=== PATIENT | female | born 1960 | race Caucasian/White ===

== ENCOUNTER → 2021-03-14 14:30 | Outpatient (CLI) | payer OTHER, SELFPAY ==
[2021-03-14 16:47] LABS: Probe Check PASS; Specimen Processing Control PASS
== END ==
PROVIDERS: PCP Family Medicine; Referring Provider Urology; Visit Provider Urology
DX: Z03.818 Encounter for observation for suspected exposure to other biological agents ruled out (principal)
CPT/HCPCS: 87635; C9803; U0005; U0003

== ENCOUNTER 2021-06-17 14:23 | Emergency (ER) | payer OTHER, SELFPAY ==
[2021-06-17 14:23] VITALS: BP 90/59; PULSE 88; RESP 18; TEMP 36.6; O2SAT 99; BMI 19.1
--- NOTE | 2021-06-17 15:46 | EKG12_ITS ---
Test Reason : SOB Blood Pressure : / mmHG Vent. Rate : 078 BPM Atrial Rate : 078 BPM P-R Int : 136 ms QRS Dur : 088 ms QT Int : 382 ms P-R-T Axes : 051 021 046 degrees QTc Int : 435 ms Normal sinus rhythm Normal ECG Confirmed by CONOR BENITEZ, MARTÍNEZ ([id number]), social media editor SHARMAINE THURMAN ([id number]) on 06/20/2021 10:00:40 AM Referred By: ITALO Confirmed By:MARTÍNEZ PERDOMO MD
--- NOTE | 2021-06-17 15:48 | EDS_ITS ---
HPI History of Present Illness Chief Complaint: Fever Informant: patient Narrative Narrative: Patient was sent in by her primary physician today just to get checked. Patient started with some coughing and fevers back in mid May. On about the or 12 May she was seen at a different emergency department. Blood work x-rays were done that showed pneumonia. She was on Levaquin at that time. The fever stopped between about 01 June and 07 June. The fevers then came back 07 June. She said they will be up to upper 102's and as low as 101. She is still coughing but no sputum production. She is not actually short of breath. No pain. She was also diagnosed with a UTI earlier on but on repeat checks that was gone and her symptoms are gone. She has followed up with her physician. They switched her after 12 days of Levaquin. She is now on Augmentin for 4 days. No major change. She had a negative Covid test at home. She had an early negative Covid test that was a PCR. She had another Covid test on Thursday but does not know the results. She has had x-rays as well as a CT with contrast. This showed some groundglass opacities mostly on the left but slightly on the right. She has no history of autoimmune disease. She does have history of multiple sclerosis and is on monthly injections for this. No sores or wounds. No swollen or tender areas. She did have a [place] [facility] [place] but she has no chest pain hemoptysis tachycardia tachypnea hypoxia leg pain or swelling. Patient does have follow-up with pulmonology, Dr. Nguyen if she is not admitted today. [facility] Medical History (Updated 06/17/21 @ 17:[address] Sadiq Del Rio MD) Multiple sclerosis Home Medications prednisone 60 mg PO DAILY #15 tab 06/17/21 [Rx Last Taken Unknown] Allergy/AdvReac Type Severity Reaction Status Date / Time pantoprazole [From Protonix] Allergy Angioedema Verified 06/17/21 14:26 Social History Smoking Status: Never smoker ROS ROS ED Constitutional Constitutional ED: Reports fever(s) and subjective; Denies weight loss Eyes Eyes: Denies blurry vision ENT ENT ED: Denies rhinorrhea or sore throat Cardiovascular Cardiovascular: Denies chest pain, palpitations or racing heartbeat Respiratory/Chest Respiratory/Chest: Reports cough; Denies dyspnea or sputum Gastrointestinal Gastrointestinal: Reports other Details: Appetite is down but she is able to eat and drink. No nausea vomiting or diarrhea. ; Denies abdominal pain, nausea or vomiting Genitourinary Genitourinary ED: Denies dysuria, hematuria or urinary frequency Musculoskeletal Musculoskeletal: Denies myalgias Integumentary Denies rash Neurologic Neurologic: Denies headache(s) or weakness Psychiatric Psychiatric: Denies anxiety or depression Endocrine Endocrinology: Denies polydipsia or polyuria Allergic/Immunologic Allergic/Immunologic ED: Denies urticaria EXAM Physical Exam Const Vital Signs: 06/17/21 14:23 06/17/21 16:00 06/17/21 17:25 Temperature 98 F Temperature Source Temporal Pulse Rate 88 80 84 Respiratory Rate 18 20 H 23 H Blood Pressure 90/59 L 83/66 L Blood Pressure Mean 69 71 Pulse Ox 99 94 99 Oxygen Delivery Method Room Air Room Air Room Air Positive well nourished and well developed; Negative for unkempt Constitutional Narrative: Patient looks comfortable. She is appropriately dressed and groomed sitting in bed quietly. Saturations are 99%. She does not look pale. Not diaphoretic. Not toxic. General Appearance ED: well developed and NAD; Negative for unkempt, cyanotic or diaphoretic HEENT Reports moist mucous membranes Eyes General Eye ED: Negative for pale conjunctiva Neck no JVD Chest Wall inspection of chest normal Resp normal respiratory effort and clear to auscultation bilaterally Resp Narrative: Breathing is easy and unlabored. When she takes deep breaths they do start a slight dry cough but no sputum production. However, I do not hear any rales rhonchi or actual wheezing. There is no discomfort with a deep breath. Effort and Inspection: Negative for pain with movement Auscultation: Negative for rales, rhonchi or wheezes Cardio regular rate, regular rhythm and no murmurs GI normal to inspection, nondistended, normoactive bowel sounds and non-tender Palpation: soft Back/Spine no CVA tenderness Extremity normal to inspection Extremity Narrative: Extremities are thin, nontender, no edema, no cords, no asymmetry. General Extremety ED: Negative for edema or tenderness General Extremity: Negative for edema Neuro oriented x3 Sensorium / Orientation: alert Psych mental status grossly normal Appearance: Negative for unkempt Skin no rashes or lesions noted and no wounds MDM MDM MDM Narrative Medical decision making narrative: Patient's blood work including CBC is overall unremarkable. Potassium was minimally low at 3.4 and this should self correct. Urine was clean. He however did show her to reticulonodular densities. This was more on the right. Patient saturations are normal. She can walk around without any difficulties. Her symptoms have not worsened over the last month but they have not improved. She has follow-up appointment being scheduled with pulmonology, Dr. Nguyen. She talk to her their office today. They states if she was admitted they will follow her up in the office. If she is not admitted to call their office in the morning for an appointment. I think an appointment with Dr. Nguyen is very important. This patient is presenting with a month of symptoms that are just not improving. Her x-ray is looking more like a chronic reactive change than acute pneumonia. We will have her finish her Augmentin. I will place her on a short course of steroids. Illnesses such as autoimmune and possible sarcoidosis could be the cause of her symptoms. If she has dyspnea, pain, hemoptysis or other findings she should return. I think the patient may end up needing biopsies. Lab Data Attestation: I reviewed the patient's lab results. Labs: Laboratory Results - last 24 hr 06/17/21 06/17/21 06/17/21 15:55 15:55 16:43 WBC 8.9 RBC 4.47 Hgb 12.4 Hct 38.1 MCV 85.2 MCH 27.7 MCHC 32.5 RDW Std Deviation 42.4 RDW Coeff of Dolores 13.6 Plt Count 457 H MPV 9.3 Immature Gran % (Auto) 0.800 Neut % (Auto) 81.8 H Lymph % (Auto) 11.6 L [place] % (Auto) 5.4 Eos % (Auto) 0.2 Baso % (Auto) 0.2 Absolute Neuts (auto) 7.2 Absolute Lymphs (auto) 1.03 Nucleated RBC % 0 Sodium 137 Potassium 3.4 L Chloride 104 Carbon Dioxide 29.0 Anion Gap 4 L BUN 9 Creatinine 0.70 Estim Creat Clear Calc 71.26 Est GFR (MDRD) Af Amer 110 Est GFR (MDRD) Non-Af 91 BUN/Creatinine Ratio 12.8 Glucose 95 Calcium 8.6 Urine Color Yellow Urine Clarity Clear Urine pH 7.0 Ur Specific Railroad 1.005 Urine Protein Negative Urine Glucose (UA) Normal Urine Ketones Negative Urine Occult Blood Negative Urine Nitrite Negative Urine Bilirubin Negative Urine Urobilinogen Normal Ur Leukocyte Esterase Negative Urine RBC 0 SEEN Urine WBC 0 SEEN Ur Squamous Epith Cells 0 SEEN Urine Bacteria 0 SEEN Urine Mucus 0 SEEN Radiography Diagnostic Testing: Clinical Impression(s) from Imaging Studies Chest X-Ray 06/17/21 16:18 IMPRESSION: Bilateral perihilar reticulonodular interstitial infiltrate or pulmonary edema more pronounced on the right. Electronically Signed: Wisam Tapia MD at 16:31 EDT Reading Location ID and State: [facility] / [place] , Service support , EKG Initial EKG: Comments: EKG done for cough and dyspnea read by me shows normal sinus rhythm with overall rate of 78. No ectopy. No acute ST elevation or depression. Very slight RSR pattern but no widening QRS. VA interval, QRS duration and QTc are normal. Discharge Plan Triage Chief Complaint: Fever ED Provider: Sadiq Del Rio Dx/Rx/DC Orders Clinical Impression: Cough, Reticulonodular infiltrate present on imaging of chest Instructions: ED Understanding Hypersensitivity Pneumonitis, Pulmonary Sarcoidosis, ED Pneumonia (Adult) Prescriptions: New prednisone 20 MG tablet 60 mg PO DAILY Qty: 15 RF: 0 Primary Care Provider: Triston Rg Referrals: Triston Rg MD [Primary Care Provider] - Luis Nguyen DO [STAFF PHYSICIAN] - As soon as possible Disposition Disposition: Home, Self Care
--- NOTE | 2021-06-17 15:55 | NURSING ---
NO OLD EKGS
[2021-06-17 16:00] VITALS: PULSE 80; RESP 20; O2SAT 94
[2021-06-17] MEDS: Ipratropium/Albuterol Sulfate 3 ML AMPUL.NEB INHALATION (16:00)
[2021-06-17 16:10] LABS: Absolute Lymphocyte Count 1.03 X10^3/uL (0.83-4.51); Absolute Neutrophil Count 7.2 X10^3/uL (2.0-7.7); Basophil# 0.02 X10^3/uL; Basophil% 0.2 % (0-1); Eosinophil# 0.02 X10^3/uL; Eosinophils% 0.2 % (0-5); Hematocrit 38.1 % (37-47); Hemoglobin 12.4 g/dL (12.0-15.0); Lymphocyte # 1.03 X10^3/ul (0.83-4.51); Lymphocyte % 11.6 % (19-41); Mean Corp Hgb Conc 32.5 g/dL (32-36); Mean Corpuscular Hgb 27.7 pg (27.0-32.0); Mean Corpuscular Volume 85.2 fL (81-99); Mean Platelet Vol. 9.3 fl (6.2-12.0); Monocyte# 0.48 X10^3/uL; Monocyte% 5.4 % (0-10); NRBC Flagged by Analyzer 0 % (0-5); Neutrophil # 7.23 X10^3/uL (2.7-7.7); Neutrophil % 81.8 % (47-70); Platelet Count 457 K/mm3 (150-450); RBC Distribution Width CV 13.6 % (11.6-14.6); RBC Distribution Width SD 42.4 fl (35.1-43.9); Red Blood Count 4.47 M/mm3 (4.2-5.4); White Blood Count 8.9 K/mm3 (4.4-11.0)
--- NOTE | 2021-06-17 16:18 | RAD_ITS ---
STUDY: X-RAY CHEST REASON FOR EXAM: Female, 61 years old. cough TECHNIQUE: PA and lateral COMPARISON: None. FINDINGS: There are bilateral perihilar reticulonodular interstitial infiltrates or pulmonary edema more pronounced on the right.. There is no demonstrated pleural abnormality. Normal size heart. Normal mediastinum and justin. Normal visualized pulmonary arteries. Normal visualized aortic arch and descending thoracic aorta. Normal visualized thoracic spine. Normal visualized ribs, clavicles, and shoulders. There is no demonstrated abnormality of the visualized soft tissue structures of the upper abdomen. RAD/Chest PA and Lateral IMPRESSION: Bilateral perihilar reticulonodular interstitial infiltrate or pulmonary edema more pronounced on the right. Electronically Signed: Wisam Tapia MD at 16:31 EDT ,
[2021-06-17 16:33] LABS: Anion Gap 4 (5-15); BUN 9 mg/dL (7-18); BUN/Creat Ratio 12.8 RATIO (10-20); Calcium,Total 8.6 mg/dL (8.5-10.1); Chloride 104 mmol/L (98-107); EST Glomerular Filtration Rate 91 mL/min (>60); Est Glom Filt Rate - Afr Amer 110 mL/min (>60); Estimated Creatinine Clearance 71.26 ml/min; Glucose 95 mg/dL (74-106); Potassium 3.4 mmol/L (3.5-5.1); Sodium Level 137 mmol/L (136-145)
[2021-06-17 17:01] LABS: Bacteria 0 SEEN /hpf (None Seen); Mucous, Urine 0 SEEN /hpf (<or=2+); Red Blood Cells-Urine 0 SEEN /hpf (0-5); Squamous Epithelial Cells - UA 0 SEEN /hpf (5-10); White Blood Cells 0 SEEN /hpf (0-5)
[2021-06-17 17:11] LABS: Color, Urine Yellow (Yellow); Glucose, Dipstick Normal (Normal); Ketone-Dipstick Negative (Negative); Leukocyte Esterase-Dipstick Negative /ul (Negative); Nitrite-Dipstick Negative (Negative); Occult Blood-Urine Negative /ul (Negative); Protein-Dipstick Negative (Negative); Specific Gravity, Urine 1.005 (1.002-1.030); Urine Bilirubin Dipstick Negative (Negative); Urine Clarity Clear (Clear); Urine Urobilinogen Normal (Normal)
[2021-06-17 17:25] VITALS: BP 83/66; PULSE 84; RESP 23; O2SAT 99
[2021-06-17 17:56] VITALS: TEMP 36.8
[2021-06-17] MEDS: predniSONE 20 MG Tablet 60 MG PO (17:56)
== END 2021-06-17 18:03 | disposition home or self-care (01) ==
PROVIDERS: Emergency Provider Emergency Medicine; PCP Family Medicine; Visit Provider Emergency Medicine
DX: R05.9 Cough, unspecified (principal); G35 Multiple sclerosis; D86.0 Sarcoidosis of lung; R91.8 Other nonspecific abnormal finding of lung field
CPT/HCPCS: 71046; 80048; 81001; 85025; 87040; 87635; 93005; 94640; 99285; A4216; U0003; U0005

== ENCOUNTER 2021-06-19 12:14 | Outpatient (CLI) | payer OTHER, SELFPAY ==
[2021-06-19 12:52] LABS: Partial Thromboplast Time 29.6 Seconds (24.1-36.2); Prothrombin Time (Protime)PT. 12.1 SECONDS (11.7-14.9)
[2021-06-20 12:09] LABS: HEPATITIS B SURFACE AG Negative (Negative); Hepatitis A IgM Antibody Negative (Negative); Hepatitis B Core AB IgM Negative (Negative)
[2021-06-20 12:36] LABS: Hep C Antibodies 0.1 s/co ratio (0.0-0.9)
== END 2021-06-19 23:59 | disposition home or self-care (01) ==
LOC: LAB 12:15
PROVIDERS: PCP Family Medicine; Referring Provider Internal Medicine Critical Care Medicine; Visit Provider Internal Medicine Critical Care Medicine
DX: R05.9 Cough, unspecified (principal); R91.8 Other nonspecific abnormal finding of lung field; R06.00 Dyspnea, unspecified
CPT/HCPCS: 36415; 80074; 85610; 85730

== ENCOUNTER 2021-06-27 06:36 | Outpatient (CLI) | payer OTHER, SELFPAY ==
--- NOTE | 2021-06-27 06:38 | CT_ITS ---
STUDY: CT CHEST WITHOUT CONTRAST REASON FOR EXAM: Female, 61 years old. LLL infiltrate RADIATION DOSAGE (If Supplied By Facility): CTDIvol = ( 6.37 ) mGy, DLP = ( 222.88 ) mGycm TECHNIQUE: Transaxial imaging was performed without the administration of intravenous contrast material. Multiplanar coronal and sagittal images were reformatted. Individualized dose optimization techniques were used for this CT. COMPARISON: None. FINDINGS: Focal area of groundglass appearance in the apex of the right lung extending into the posterior segment of the right upper lobe. Focal area of groundglass appearance also seen in the left upper lobe. Areas of bronchiectasis are seen. There is also evidence of a airspace disease in the right lower lobe. Minimal linear scarring in the left lower lobe. These changes may represent early interstitial fibrosis. Follow-up is recommended. There is no demonstrated pleural abnormality. Normal heart and pericardium. Normal mediastinum. Normal hilar regions. Normal unenhanced pulmonary arteries. Normal aorta arch and descending thoracic aorta. Normal osseous structures. There is no demonstrated abnormality of the visualized upper abdomen. CT/Chest without Contrast IMPRESSION: Areas of groundglass appearance in both upper lobes as well as in the right lower lobe with areas of bronchiectasis. This may represent early interstitial fibrosis secondary to sarcoidosis. Follow-up is recommended. Electronically Signed: Dre Parish MD at 8:42 EDT ,
== END 2021-06-27 23:59 | disposition home or self-care (01) ==
LOC: CT 06:37
PROVIDERS: PCP Family Medicine; Referring Provider Internal Medicine Critical Care Medicine; Visit Provider Internal Medicine Critical Care Medicine
DX: R05.9 Cough, unspecified (principal); R91.8 Other nonspecific abnormal finding of lung field; R06.00 Dyspnea, unspecified
CPT/HCPCS: 71250

== ENCOUNTER 2021-06-28 10:40 | Day surgery (SDC) | payer OTHER, SELFPAY ==
[2021-06-28] VITALS (7 sets, daily range): BP systolic 88–113; BP diastolic 49–82; PULSE 79–95; RESP 15–20; TEMP 36.4–37.1; O2SAT 94–99; BMI 19.1
--- NOTE | 2021-06-28 | FLU_PTH ---
PATIENT: ANGEL FALCON LOC: EN U#:[id number] AGE/SX: 61/F ROOM: RE06/28/[address]: Dr. Alex Segura MD : 1960 BED: DIS: 06/28/2021 SPEC #: [id number] RECD: 06/28/21 13:13 STATUS: THIAGO MACIELZana #: [id number] KATEY: 06/28/21 00:[address]: Alex Segura DEPT: CYTOLOGY RECD BY: Toy Conn ENTERED: 07/01/21 07:52 SP TYPE: Fluid OTHR DR: Dr. Triston Rg MD Tissues: Lung, NOS Procedures: Special Stain Group II Surgery Specimen Level IV Cytospin Fluid HEADER OPERATION: Bronchoscopy PRE-OP DIAGNOSIS: Cough TISSUE SUBMITTED: BAL RUL DIAGNOSIS CYTOLOGY RUL, BAL (cytospin and cell block): Negative for malignant cells. See comment. GRAHAM:kierra 07/02/2021 COMMENT Flow cytometry study from [facility] was cancelled due to low cell viability and low cell yield. Please also correlate with corresponding surgical specimen [id number], fifth tracheal ring, endobronchial biopsy. CYTOLOGY STUDY Slides are reviewed. CYTOLOGY GROSS Received is 15 ml of hazy colorless fluid labeled with the patient's name and and designated per the requisition as BAL RUL. Submitted for cytology preparation including cell block. / rg 07/01/2021 TC:5 CPT: 91403, 01273
--- NOTE | 2021-06-28 | TISS_PTH ---
PATIENT: ANGEL FALCON LOC: EN U#:[id number] AGE/SX: 61/F ROOM: RE06/28/[address]: Dr. Alex Segura MD : 1960 BED: DIS: 06/28/2021 SPEC #: [id number] RECD: 06/28/21 13:13 STATUS: THIAGO MACIELZana #: [id number] KATEY: 06/28/21 00:[address]: Alex Segura DEPT: SURGICAL PATHOLOGY RECD BY: Toy Conn ENTERED: 07/01/21 08:42 SP TYPE: Tissue Bx ASHLEIGH DR: Dr. Triston Rg MD Tissues: Trachea, NOS Procedures: Surgery Specimen Level IV HEADER OPERATION: Endobronchial biopsy PRE-OP DIAGNOSIS: Cough TISSUE SUBMITTED: Fifth tracheal ring MICROSCOPIC DIAGNOSIS Fifth tracheal ring, endobronchial biopsy: Benign bronchial and sub-bronchial tissue. Benign fragments of cartilage. No evidence of malignancy. AM:kierra 07/02/2021 COMMENT Case has been reviewed in consultation with Dr. Stephenson who concurs with the above diagnosis. IDC:GRAHAM MICROSCOPIC DESCRIPTION Slides are reviewed. GROSS DESCRIPTION Received in fixative is one container labeled with the patient's name and designated fifth tracheal ring biopsy. The specimen consists of multiple irregular fragments of brownish soft tissue that in aggregate measure 0.2 x 0.2 x 0.1 cm. The specimen is totally submitted in one cassette. / SJ:kierra 07/01/2021 TC:5 CPT: 15784
[2021-06-28] MEDS: Lactated Ringers 1,000 ML 15 ML IV (11:14)
--- NOTE | 2021-06-28 11:53 | PCM.HP.BLA ---
History and Physical Date of Admission: 06/28/21 Patient seen and examined independently prior to the procedure. There have been no significant changes compared to previous. All questions were answered. Okay to proceed. Anticipate BAL of the right upper or right lower lobe. Patient is aware that endobronchial biopsies may be sent pending the results of visualization. Assessment and Plan Assessment and Plan (1) Pneumonia: (2) Cough: Status: Acute (3) Reticulonodular infiltrate present on imaging of chest: Status: Acute (4) Dyspnea: Status: Acute Orders: Orders: Bronchoscopy Today R05.9, R91.8, R06.00 Partial Thromboplast Time Today R05.9, R91.8, R06.00 Prothrombin Time w/INR Today R05.9, R91.8, R06.00 Chest without Contrast Today R05.9, R91.8, R06.00 Hepatitis Panel Acute Today R05.9, R91.8, R06.00 Pulmonary Function Test (Comp) Today R05.9, R91.8, R06.00 Plan - Dr. Alex Segura MD: Unclear etiology. CT scan done at the beginning of the month shows only left lower lobe findings, but physical exam is suggestive of bilateral rales. This is suggestive of progression of the current symptoms. Patient saturations also appear to be marginal at this time. Patient is on immunotherapy for MS, so occult infection is a possibility. Pneumonitis is not described on research with Ocrevus, but has been seen with other immunotherapy. After review of the risks, benefits and alternatives, patient has agreed to proceed with bronchoscopy with biopsies if necessary. Will obtain appropriate labs. Acute hepatitis panel will also be obtained. A CT of the chest without contrast will be ordered to direct biopsies associated with bronchoscopy. Complete pulmonary function test for quantification clarification of lung function. If infectious work-up is unremarkable, autoimmune work-up would be indicated. Holding on autoimmune work-up at this time as patient has received steroids for 2 days and there is a risk of a false negative work-up. Obtain CT chest to direct bronchoscopy biopsies. Acute hepatitis panel and complete PFT. Plan Details Follow Up: 1 Month (BWA) HPI Pneumonia Details: Patient is a 61-year-old female, currently in the care of Dr. Rg, who presents for evaluation secondary to continued cough and shortness of breath. Patient reports that in May she went on a snowmobile trip in [place]. During that trip, patient had chills and a subjective fever. Patient had reported a mild cough, but was able to go out again the following day. Since that time, patient has progressed and having shortness of breath and a cough that is nonproductive. Patient states that she originally went to the emergency department at [facility] and was told that she had pneumonia. Patient subsequently went to her primary care physician was placed on a different antibiotic. Patient has been on a full dose of Levaquin and Augmentin. Patient states that she recently went to the ER at [facility] for concerns that she would need to be admitted secondary to a resistant pneumonia. Patient states that she has never really had any respiratory complaints previously. Patient works as a registered pharmacy technician and denies any exposure to asbestos or TB. Patient is a lifelong non-smoker. Patient does not deal with cough on a regular basis. Patient was recently placed on prednisone by the ER at 60 mg. Patient states that she is taking this for 2 days and has not noticed any change in her overall condition. Patient does carry a diagnosis of MS and states that she tends to have issues with overuse leading to weakness more than focal neurologic deficits. Patient is not reporting any coughing or gagging. Patient does state that she was placed on Ocrevus in 2019. Patient is not aware of any complications of the therapy. Patient is not reporting any significant chest pain. Patient does have some tightness that she associates with her cough. Patient has not reported any weight loss, rashes or joint pain. Patient is concern for progressive infection as she states that her temperature has been between 101 degrees and 102.5?F in the evening. This is not associated with any hemoptysis, epistaxis or focal area of soreness. Patient is unclear if she is ever received hepatitis vaccination. Review of systems otherwise negative from a constitutional, HEENT, respiratory, cardiovascular, GI, genitourinary, musculoskeletal, skin, neurologic, psychiatric and hematologic system unless stated above. Documentation reviewed prior to the office visit 25 pages of documentation were reviewed prior to the office visit. Patient was recently seen in the emergency department in June 2021. Patient has been on multiple antibiotics with continued fevers and shortness of breath. Patient had been treated with Augmentin and Levaquin but persistent shortness of breath. Patient has had multiple negative Covid test over the course of this illness. Patient was saturating well on room air and did not have a leukocytosis during that evaluation. Chemistries did show an elevated bicarbonate of 29. Patient has been seen at [facility] previously. EKG showed sinus rhythm with no significant blocks. Imaging personally reviewed using disc CT chest (06/04/2021): Groundglass opacity most predominantly in the left lower lobe and lingula with mild subsegmental atelectasis. Intake Vital Signs 06/18/21 08:02 Height 5 ft 5 in Weight: 52.617 kg BMI 19.3 BP 94/59 L Blood Pressure Location Rt brachial Position Sitting Respiration 18 Pulse 86 Pulse Source Monitor Temp 36.2 C L Temperature Source Tympanic Pulse Oximetry (%) 93 Oxygen Delivery Method room air Intake Visit Reasons: Pneumonia Allergies pantoprazole [From Protonix] Allergy (Verified 06/19/21 10:58) Angioedema Medications prednisone 60 mg PO DAILY #15 tab 06/17/21 [Rx Confirmed 06/19/21] estradiol 1 g VAGINAL DAILY 06/19/21 [History Confirmed 06/19/21] ocrelizumab 30 mg/mL intravenous solution mg .ROUTE 06/19/21 [History Confirmed 06/19/21] progesterone micronized 100 mg capsule 100 mg PO QAM 06/19/21 [History Confirmed 06/19/21] PFSH Medical History Multiple sclerosis Surgical History H/O: hysterectomy Hx of appendectomy Family History Mother Hypertension Father Leukemia Social History Smoking Status: Never smoker Review of Systems Resp Respiratory: Yes as per HPI Exam Const Constitutional: Positive conversant, cooperative, in no acute respiratory distress, healthy appearing, well developed, well nourished and good hygiene Head Head: Yes normocephalic, Yes atraumatic and No cyanosis of lips/distal nose Eyes Eye: Positive clear conjunctiva; Negative nystagmus, scleral abnormality or cataract present Ears Ear: Positive hearing normal and external ears normal; Negative hard of hearing Neck Neck: Positive normal visual inspection, full ROM and trachea midline; Negative lymphadenopathy or JVD Chest Wall Chest: Positive normal inspection of the chest and symmetric chest movement; Negative crepitus or tenderness Resp lung sounds: Positive rales rales: Positive bilateral and lower and normal expiratory time; Negative wheezes, wheeze present on forced exhalation, rhonchi, dullness or use of accessory muscles Cardio Cardiac: Positive regular rate, regular rhythm, S1 normal and S2 normal; Negative murmur, rub or gallop Musc Musculoskeletal: Positive steady gait; Negative using an assistive device for ambulation, kyphosis or scoliosis Skin Pulmonary Skin Exam: Positive intact; Negative lesion, rash, ulcers or erythema Pulses Pulse: Yes radial pulses present Extremities Extremities: Yes capillary refill normal, No clubbing, No cyanosis and No edema Neuro Neurologic: Yes no focal neuro deficits, Yes conversant, Yes cooperative, Yes normal cognition, Yes normal coordination, Yes normal concentration and Yes understands questions Lymph Lymphatic: No lymphadenopathy Psych Appearance: Positive grossly normal Mental Status: Positive mental status grossly normal Mood: Positive congruent mood Affect: Positive normal affect
[2021-06-28] MEDS: Lidocaine 2% Jelly 1 APPLIC Tube (12:19)
[2021-06-28] MEDS: Lidocaine 2% (5ml sdv) 5 ML VIAL.MPF (12:31)
--- NOTE | 2021-06-28 12:58 | OP.BRONCH_ITS ---
Patient Name: Lexy Machado Procedure Date: 06/28/2021 11:41 AM Date of : 1960 Age: 61 Procedure: Bronchoscopy Indications: Bilateral infiltrate, Chronic cough with abnormal CT Providers: Alex Segura MD Medicines: See the Anesthesia note for documentation of the administered medications Complications: No immediate complications Procedure: Pre-Anesthesia Assessment: - A History and Physical has been performed. Patient meds and allergies have been reviewed. The risks and benefits of the procedure and the sedation options and risks were discussed with the patient. All questions were answered and informed consent was obtained. Patient identification and proposed procedure were verified prior to the procedure by the physician in the pre-procedure area. Mental Status Examination: normal. Airway Examination: normal oropharyngeal airway. Respiratory Examination: bibasilar crackles. CV Examination: RRR, no murmurs, no S3 or S4. ASA Grade Assessment: II - A patient with mild systemic disease. After reviewing the risks and benefits, the patient was deemed in satisfactory condition to undergo the procedure. The anesthesia plan was to use monitored anesthesia care (MAC). Immediately prior to administration of medications, the patient was re-assessed for adequacy to receive sedatives. The heart rate, respiratory rate, oxygen saturations, blood pressure, adequacy of pulmonary ventilation, and response to care were monitored throughout the procedure. The physical status of the patient was re-assessed after the procedure. After I obtained informed consent, the scope was passed under direct vision. Throughout the procedure, the patient's blood pressure, pulse, and oxygen saturations were monitored continuously by anesthesia. The bronchoscope was introduced through the left nostril and advanced to the tracheobronchial tree of both lungs. The procedure was accomplished with ease. The patient tolerated the procedure well. The total duration of the procedure was 12 minutes. Findings: Trachea/Neha Abnormalities: Respiratory tract: The larynx is normal. The vocal cords appear normal. The subglottic space is normal, but the trachea is not normal. The neha is sharp. The entire tracheobronchial tree was examined to at least the first subsegmental level. Bronchial mucosa and anatomy are normal except for a small area of possible AVM in the medial aspect of the left mainstem. No biopsy taken, but did have picture. Finding approximately 1 cm from main neha; there are no endobronchial lesions, and no secretions. Bronchoalveolar lavage was performed in the RUL posterior segment (B2) of the lung and sent for cell count, bacterial culture, viral smears & culture, and fungal & AFB analysis and cytology. 60 mL of fluid were instilled. 26 mL were returned. The return was clear. There were no mucoid plugs in the return fluid. Nodular mucosa was found in the trachea on the fifth tracheal ring. Endobronchial biopsies were performed in the trachea using forceps and sent for histopathology examination. Four samples were obtained. Impression: - Bilateral infiltrate - Chronic cough with abnormal CT - Nodular mucosa was visualized in the trachea. - An endobronchial biopsy was performed. Recommendation: - The patient will be observed post-procedure, until all discharge criteria are met. - Await BAL and biopsy results. - Patient has a contact number available for emergencies. The signs and symptoms of potential delayed complications were discussed with the patient. Return to normal activities tomorrow. Written discharge instructions were provided to the patient. - Follow up with bronchoscopist as previously scheduled. Procedure Code(s): --- Professional --- 22818, Bronchoscopy, rigid or flexible, including fluoroscopic guidance, when performed; with bronchial or endobronchial biopsy(s), single or multiple sites Diagnosis Code(s): --- Professional --- R91.8, Other nonspecific abnormal finding of lung field R05, Cough J39.8, Other specified diseases of upper respiratory tract CPT copyright 2017 [employer]. All rights reserved. The codes documented in this report are preliminary and upon forest fire warden review may be revised to meet current compliance requirements. MD Alex Yepez MD 06/28/2021 12:58:06 PM This report has been signed electronically. Number of Addenda: 0 Note Initiated On: 06/28/2021 11:41 AM
[2021-06-28 13:19] LABS: Cytology, Washings SEE PATHOLOGY REPORT
[2021-06-28 13:59] LABS: Appearance/Body Fluid CLEAR; Color/Body Fluid COLORLESS
[2021-06-28 14:00] LABS: Body Fluid Total Cells Counted 0.532 10^3/ul; Red Cell Count/Body Fluid 8 /mm3; White Blood Count/Body Fluid 0.421 10^3/uL
[2021-06-28 14:03] LABS: Source- Body Fluid BRONCHIAL LAVAGE
[2021-06-28 15:07] LABS: Lymphocytes 57 %; Macrophages 10 %; Neutrophil (Segs) 33 %
[2021-06-28 15:39] LABS: Body Fluid QC Type(s) BF1Q,BF2Q
[2021-07-02 13:51] LABS: Pathologist Comment/Body Fluid Reviewed
== END 2021-06-28 23:59 | disposition home or self-care (01) ==
LOC: EN 10:42 → AC 10:44
PROVIDERS: PCP Family Medicine; Referring Provider Family Medicine; Visit Provider Internal Medicine Critical Care Medicine
PROC: 0BJ08ZZ Inspection of Tracheobronchial Tree, Via Natural or Artificial Opening Endoscopic (ICD-10-PCS; CPT 31622; principal; 2021-06-28 11:45)
DX: J18.9 Pneumonia, unspecified organism (principal); R05.3 Chronic cough; R91.8 Other nonspecific abnormal finding of lung field; J39.8 Other specified diseases of upper respiratory tract
CPT/HCPCS: 31625; 31624; 87015; 87070; 87101; 87116; 87205; 87206; 87252; 87426; 88108; 88305; 88313; 89050; J2405

== ENCOUNTER 2021-07-11 07:58 | Outpatient (CLI) | payer OTHER, SELFPAY ==
--- NOTE | 2021-07-11 12:44 | PFT ---
INTRODUCTION: The patient is a 61-year-old female that presents for pulmonary function studies secondary to a diagnosis of dyspnea. Respiratory therapy reported good patient effort. Bronchodilators were used during testing. INTERPRETATION: Forced expiration spirometry demonstrates no evidence of a large airways obstructive ventilatory defect. There was no significant response to aerosolized bronchodilators. Spirograms are of good quality and plateau normally. Body plethysmography was performed and revealed a decreased TLC to 4.38 L, 84% of predicted, indicative of a mild restrictive ventilatory impairment. Diffusing capacity by single breath CO is reduced at 64% of predicted. IMPRESSION: Mild restrictive ventilatory impairment with symmetric reduction in diffusing capacity.
== END 2021-07-11 23:59 | disposition home or self-care (01) ==
LOC: PSN 07:59
PROVIDERS: PCP Family Medicine; Referring Provider Internal Medicine Critical Care Medicine; Visit Provider Internal Medicine Critical Care Medicine
DX: R05.9 Cough, unspecified (principal); R91.8 Other nonspecific abnormal finding of lung field; R06.00 Dyspnea, unspecified
CPT/HCPCS: 94060; 94726; 94729

== ENCOUNTER → 2021-09-24 | Outpatient (CLI) | payer OTHER, SELFPAY ==
--- NOTE | 2021-09-24 06:43 | CT_ITS ---
EXAM: CT CHEST WITHOUT INTRAVENOUS CONTRAST CLINICAL INDICATION: shortness of breath TECHNIQUE: Helically acquired images were obtained of the chest without intravenous contrast. This CT exam was performed using one or more of the following dose reduction techniques: automated exposure control, adjustment of the mA and/or kV according to patient size, and/or use of iterative reconstruction technique. This report was created using [employer] report generation technology. RADIATION DOSE: CTDIvol = 6.2 mGy, DLP = 201.8 mGy-cm. COMPARISON: 06/27/2021. FINDINGS: LUNGS AND PLEURAL SPACES: Previously noted areas of groundglass opacification in the upper lobes have resolved. Faint patchy groundglass opacification right lower lobe in the superior segment of the left lower lobe. Patchy groundglass opacification and subsegmental atelectasis left lower lobe. No mass. No pleural effusion or thickening. No pneumothorax. HEART: Unremarkable. Heart size is normal. No pericardial effusion. No significant coronary artery calcifications. MEDIASTINUM: Unremarkable. No mediastinal or hilar adenopathy. Esophagus is unremarkable. No hiatal hernia. THYROID: Unremarkable. No thyroid lesions. BONES/JOINTS: Unremarkable. No suspicious lytic or blastic abnormality. VASCULATURE: Unremarkable. Thoracic aorta is non-dilated. CT/Chest without Contrast IMPRESSION: Resolution of the previously noted groundglass opacities in the upper lobes with new areas of groundglass opacification in the right lower lobe laterally and the superior segment of the left lower lobe. Differential diagnosis includes infection, hypersensitivity pneumonitis, interstitial pneumonia and sarcoidosis. Electronically Signed: Lebron Alejo MD at 7:53 EDT ,
== END | disposition home or self-care (01) ==
PROVIDERS: PCP Family Medicine; Referring Provider Nurse Practitioner Acute Care; Visit Provider Nurse Practitioner Acute Care
DX: R06.02 Shortness of breath (principal)
CPT/HCPCS: 71250

== ENCOUNTER → 2021-11-21 | Outpatient (CLI) | payer OTHER, SELFPAY ==
--- NOTE | 2021-11-21 17:42 | RAD_ITS ---
EXAM: XR CHEST, 2 VIEWS CLINICAL INDICATION: Cough and fever, on chronic prednisone TECHNIQUE: Frontal and lateral views of the chest. This report was created using [employer] report generation technology. COMPARISON: 06/17/2021. CT scan of the chest 06/27/2021. FINDINGS: LUNGS AND PLEURAL SPACES: Obliquely oriented coarse linear opacity right lower lung may be due to an area of scarring. Resolution of the previously noted consolidations in the lower lobes. No pneumothorax. No effusion. HEART: Unremarkable. Cardiac silhouette not enlarged. MEDIASTINUM: Central airways and mediastinal contour are unremarkable. BONES/JOINTS: Unremarkable. SOFT TISSUES: Unremarkable. RAD/Chest PA and Lateral IMPRESSION: 1. Obliquely oriented coarse linear opacity right lower lung may be due to an area of scarring. 2. No focal consolidations. Electronically Signed: Lebron Alejo MD at 3:13 EDT ,
== END | disposition home or self-care (01) ==
LOC: RAD 17:38
PROVIDERS: PCP Family Medicine; Referring Provider Internal Medicine Critical Care Medicine; Visit Provider Internal Medicine Critical Care Medicine
DX: J84.89 Other specified interstitial pulmonary diseases (principal)
CPT/HCPCS: 71046

== ENCOUNTER → 2022-02-25 | Outpatient (CLI) | payer OTHER, SELFPAY ==
--- NOTE | 2022-02-25 18:21 | PFTCOMP_ITS ---
COMPLETE PULMONARY FUNCTION TEST INTERPRETATION Brief HPI: Patient is a 62-year-old female, currently under the care of myself, who presents to [facility] for complete pulmonary function tests secondary to diagnosis of cryptogenic organizing pneumonia. Respiratory therapist reports good effort and reproducible results. Interpretation: Forced expiration spirometry shows no large airways obstructive ventilatory defect with an FEV1 of 68% predicted. There is no significant bronchodilator r esponse by strict ATS criteria. Spirograms are of good quality and plateau normally. The respiratory flow volume loop shows a normal pattern. Lung volumes by body plethysmography show a decreased total lung capacity at 3.55 L, 70% predicted. All other lung volumes are reduced symmetrically. Diffusion capacity by carbon monoxide is normal at 77% predicted. The airway resistance is slightly elevated. Compared to previous pulmonary function tests from 07/11/2021, there is been a significant improvement in air trapping and DLCO. Impression: Mild restrictive ventilatory defect with normalization of diffusing capacity compared to previous testing
== END | disposition home or self-care (01) ==
LOC: PSN 09:40
PROVIDERS: PCP Family Medicine; Referring Provider Internal Medicine Critical Care Medicine; Visit Provider Internal Medicine Critical Care Medicine
DX: J84.89 Other specified interstitial pulmonary diseases (principal)
CPT/HCPCS: 94060; 94618; 94726; 94729

== ENCOUNTER → 2022-04-01 | Outpatient (CLI) | payer OTHER, SELFPAY ==
--- NOTE | 2022-04-01 12:40 | CT_ITS ---
INDICATION: Follow up BOOP. EXAMINATION: CT CHEST WITHOUT CONTRAST - CT Chest W/O Contrast Injection TECHNIQUE: Helically acquired images were obtained of the chest. A radiation dose optimization technique was used for this scan. IV Contrast dosage and agent: None. COMPARISON: Chest, November 21, 2021. CT of the chest, October 24, 2021 FINDINGS: LUNGS, PLEURA AND LARGE AIRWAYS: There is mild groundglass infiltrate in the right lung apex. This extends downward to the horizontal fissure. Patchy groundglass infiltrates are also seen posteriorly in the right lower lobe. The lungs are otherwise clear. No pleural effusion or thickening. No pneumothorax. THYROID: No thyroid lesions. HEART AND PERICARDIUM: Heart size is normal. No pericardial effusion. CORONARY ARTERIES: Coronary artery calcification VESSELS: Thoracic aorta is not dilated. MEDIASTINUM AND SEAN: No mediastinal or hilar adenopathy. Esophagus is unremarkable. No hiatal hernia. UPPER ABDOMEN: No acute pathology. BONES: No suspicious lytic or blastic abnormality. CT/Chest without Contrast IMPRESSION: 1. Mild groundglass infiltrates in the right upper lobe not previously seen. There is worsening groundglass infiltrates at the right lung base. 2. Resolution left lower lobe pulmonary disease seen on the prior study. 3. Otherwise stable findings Electronically Signed: Brady Chiang DO at 17:52 EST Reading Location ID and State: [facility] / [place] Tel [phone], Service support ,
== END | disposition home or self-care (01) ==
LOC: CT 12:39
PROVIDERS: PCP Family Medicine; Visit Provider Internal Medicine Critical Care Medicine
DX: J84.89 Other specified interstitial pulmonary diseases (principal)
CPT/HCPCS: 71250

== ENCOUNTER → 2022-06-17 | Outpatient (CLI) | payer OTHER, SELFPAY ==
[2022-06-17 07:27] LABS: Erythrocyte Sedimentation Rate 14 mm/hr (0-30)
[2022-06-17 08:01] LABS: Rheumatoid Factor < 10.0 IU/mL (<15)
[2022-06-18 15:09] LABS: Cytoplasmic Ab (C-ANCA) <1:20 titer (Neg:<1:20)
[2022-06-18 16:07] LABS: CCP IgG Antibodies 0 units (0-19); Perinuclear Ab (P-ANCA) <1:20 titer (Neg:<1:20)
[2022-06-18 21:25] LABS: ANTINUCLEAR ANTIBODIES DIRECT Negative (Negative)
== END | disposition home or self-care (01) ==
LOC: LAB 06:52
PROVIDERS: PCP Nurse Practitioner Primary Care; Referring Provider Internal Medicine Critical Care Medicine; Visit Provider Internal Medicine Critical Care Medicine
DX: J84.112 Idiopathic pulmonary fibrosis (principal)
CPT/HCPCS: 36415; 85652; 86038; 86140; 86200; 86225; 86235; 86256; 86431

== ENCOUNTER → 2022-08-14 | Outpatient (CLI) | payer OTHER, SELFPAY ==
--- NOTE | 2022-08-14 07:10 | CT_ITS ---
STUDY: CT CHEST WITHOUT CONTRAST REASON FOR EXAM: Female, 62 years old. Follow up GGO. History of groundglass opacities. RADIATION DOSAGE (If Supplied By Facility): CTDIvol = ( 6.31 ) mGy, DLP = ( 208.27 ) mGycm TECHNIQUE: Transaxial imaging was performed without the administration of intravenous contrast material. Multiplanar coronal and sagittal images were reformatted. Individualized dose optimization techniques were used for this CT. COMPARISON: Comparison is made with prior study dated April 01, 2022. FINDINGS: CHEST Emphysematous changes. Mild scarring in the right lung apex. Persistent focal area of groundglass appearance in the anterior aspect of the right upper lobe. Minimal focal ground glass appearance in the anterior aspect of the left upper lobe. The previously seen groundglass appearance in the posterior segment of the right lower lobe has cleared. There is no demonstrated pleural abnormality. There are calcifications of the coronary arteries. Normal mediastinum. Normal hilar regions. Normal unenhanced pulmonary arteries. Normal aorta arch and descending thoracic aorta. There are multi-level degenerative changes of the thoracic spine. There is no demonstrated abnormality of the visualized upper abdomen. CT/Chest without Contrast IMPRESSION: Mild residual groundglass appearance in both upper lobes more prominent on the right side. The previously seen groundglass appearance in the lower lobes has cleared. Electronically Signed: Dre Parish MD at 13:46 EDT ,
--- NOTE | 2022-08-14 13:49 | PFTCOMP ---
COMPLETE PULMONARY FUNCTION TEST INTERPRETATION Brief HPI: Patient is a 62-year-old female, currently under the care of myself, who presents to [facility] for complete pulmonary function tests secondary to diagnosis of pulmonary fibrosis. Respiratory therapist reports good effort and reproducible results. Interpretation: Forced expiration spirometry shows no large airways obstructive ventilatory defect with an FEV1 of 57% predicted. There is no significant bronchodilator response by strict ATS criteria. Spirograms are of good quality and plateau normally. The respiratory flow volume loop shows a normal pattern. Lung volumes by body plethysmography show a moderately decreased total lung capacity at 3.35 L, 66% predicted. All other lung volumes reduced symmetrically. Diffusion capacity by carbon monoxide is at the lower limit of normal at 59% predicted. The airway resistance is normal. Compared to previous pulmonary function tests from 02/25/2022, there is been a significant reduction in FVC, FEV1 and DLCO by 26%, 16% and 27% respectively. Impression: Moderate restrictive ventilatory defect with symmetric reduction diffusion capacity and some worsening compared to previous testing.
== END | disposition home or self-care (01) ==
LOC: CT 07:09
PROVIDERS: PCP Nurse Practitioner Primary Care; Referring Provider Internal Medicine Critical Care Medicine; Visit Provider Internal Medicine Critical Care Medicine
DX: J84.112 Idiopathic pulmonary fibrosis (principal)
CPT/HCPCS: 71250; 94060; 94726; 94729

== ENCOUNTER → 2023-03-09 | Outpatient (CLI) | payer OTHER, SELFPAY ==
--- NOTE | 2023-03-13 13:20 | PFTCOMP_ITS ---
COMPLETE PULMONARY FUNCTION TEST INTERPRETATION Brief HPI: Patient is a 63-year-old female, currently under the care of myself, who presents to [facility] for complete pulmonary function tests secondary to diagnosis of pulmonary fibrosis. Respiratory therapist reports good effort and reproducible results. Interpretation: Forced expiration spirometry shows no large airways obstructive ventilatory defect with an FEV1 of 64% predicted. There is no significant bronchodilator response by strict ATS criteria. Spirograms are of good quality and plateau slowly, indicating slowly emptying areas of the lungs. The respiratory flow volume loop shows decreased expiratory flow rates at high lung volumes consistent with small airways obstruction. Lung volumes by body plethysmography show mildly decreased total lung capacity at 3.86 L, 76% predicted. All other lung volumes are reduced symmetrically. Diffusion capacity by carbon monoxide is decreased at 60% predicted. The airway resistance is normal. Compared to previous pulmonary function tests from 08/14/2022, there has been a significant improvement in total lung capacity. Impression: Mild restrictive ventilatory defect with a disproportionate reduction diffusion capacity, but some improvements compared to August 2022
== END | disposition home or self-care (01) ==
LOC: PSN 07:02
PROVIDERS: PCP Nurse Practitioner Primary Care; Referring Provider Internal Medicine Critical Care Medicine; Visit Provider Internal Medicine Critical Care Medicine
DX: J84.112 Idiopathic pulmonary fibrosis (principal)
CPT/HCPCS: 94060; 94726; 94729

== ENCOUNTER → 2023-10-15 | Outpatient (CLI) | payer OTHER, SELFPAY | END | disposition home or self-care (01) | PROVIDERS: PCP Nurse Practitioner Primary Care; Referring Provider Internal Medicine Critical Care Medicine; Visit Provider Internal Medicine Critical Care Medicine | DX: J84.112 Idiopathic pulmonary fibrosis (principal) | CPT/HCPCS: 94060; 94726; 94729 ==

== ENCOUNTER → 2024-04-08 | Outpatient (CLI) | payer OTHER, SELFPAY | END | disposition home or self-care (01) | PROVIDERS: PCP Nurse Practitioner Primary Care; Referring Provider Nurse Practitioner Acute Care; Visit Provider Nurse Practitioner Acute Care | DX: J84.112 Idiopathic pulmonary fibrosis (principal) | CPT/HCPCS: 94060; 94726; 94729 ==

== ENCOUNTER → 2024-07-28 | Outpatient (CLI) | payer OTHER, SELFPAY ==
--- NOTE | 2024-07-28 11:35 | RAD_ITS ---
PROCEDURE: CHEST PA AND LATERAL 07/28/2024 REASON FOR EXAM: COUGH, CHEST DISCOMFORT TECHNIQUE: Frontal and lateral views of the chest. COMPARISON: Cough FINDINGS: Cardiomediastinal silhouette is within normal limits. Small focal opacity in the right mid to lower lung zone. Lungs are otherwise clear. No pleural effusion or pneumothorax. Emphysema. RAD/Chest PA and Lateral IMPRESSION: Small focal opacity in the right mid to lower lung zone, potentially infectious /inflammatory. Recommend CT follow-up to ensure complete resolution and exclude underlying nodule. Reading Location: [place]
== END | disposition home or self-care (01) ==
LOC: PSN 11:22
PROVIDERS: PCP Nurse Practitioner Primary Care; Referring Provider Internal Medicine Critical Care Medicine; Visit Provider Internal Medicine Critical Care Medicine
DX: R05.9 Cough, unspecified (principal)
CPT/HCPCS: 71046; 87633; 87635